=== PATIENT | female | born 1970 | race Caucasian/White ===

== ENCOUNTER 2021-01-26 21:06 | Observation (INO) ==
[2021-01-26] MEDS ORDERED: Ondansetron 4 MG/2 ML VIAL IVP ONE (21:29)
[2021-01-26] MEDS ORDERED: 0.9 % Sodium Chloride 1,000 ML IVC ONE ×2 (21:29→21:30)
[2021-01-26] MEDS ORDERED: Ketorolac 15 MG/ML VIAL IVP ONE (21:29)
[2021-01-26 21:41] LABS: Basophils % 0.3 %; Eosinophils # 0.1 K/mcL (0.0-0.6); Eosinophils % 0.7 %; Hematocrit 40.2 % (35.3-44.9); Hemoglobin 12.9 g/dL (11.5-15.4); Immature Granulocytes % 0.3 % (0-4); Lymphocytes # 0.8 K/mcL (0.6-4.6); Lymphocytes % 10.5 %; Mean Corpuscular HGB Conc 32.1 g/dL (31.6-35.5); Mean Corpuscular Hemoglobin 26.2 pg (28.0-33.3); Mean Corpuscular Volume 81.5 fL (83.0-100.0); Mean Platelet Volume 9.4 fL (9.4-12.4); Monocytes # 0.5 K/mcL (0.0-1.3); Monocytes % 6.5 %; Neutrophils # 6.2 K/mcL (1.6-8.9); Platelet Count 250 K/mcL (140-400); Red Blood Count 4.93 M/mcL (3.82-4.97); Segmented Neutrophils % 81.7 %; White Blood Count 7.5 K/mcL (4.3-11.1)
[2021-01-26 22:00] LABS: BUN/Creatinine Ratio 29 (6-26); Blood Urea Nitrogen 24 mg/dL (6-20); Calcium 8.4 mg/dL (8.6-10.3); Carbon Dioxide 21 mEq/L (23-29); Chloride 109 mEq/L (98-107); Glucose 104 mg/dL (70-105); Osmolality,Calculated 296 (280-300); Potassium 3.4 mEq/L (3.5-5.1); Sodium 141 mEq/L (136-145); eGFR For African Americans > 60 (> 60); eGFR For Non-African Americans > 60 (> 60)
[2021-01-27] MEDS ORDERED: Dexamethasone 4 MG/ML VIAL IVP ONE (00:02)
[2021-01-27] MEDS ORDERED: Melatonin 3 MG TABLET PO PRN (01:21)
[2021-01-27] MEDS ORDERED: Ondansetron ODT 4 MG TAB.RAPDIS SL PRN (01:21)
[2021-01-27] MEDS ORDERED: Acetaminophen 325 MG TABLET PO PRN (01:21)
[2021-01-27] MEDS ORDERED: Naloxone 0.4 MG/ML INJ IVP PRN (01:21)
[2021-01-27 02:59] LABS: Basophils % 0.1 %; Eosinophils % 0.6 %; Hemoglobin 11.9 g/dL (11.5-15.4); Immature Granulocytes % 0.3 % (0-4); Lymphocytes # 0.5 K/mcL (0.6-4.6); Lymphocytes % 7.6 %; Mean Corpuscular HGB Conc 31.3 g/dL (31.6-35.5); Mean Corpuscular Hemoglobin 26.1 pg (28.0-33.3); Mean Corpuscular Volume 83.3 fL (83.0-100.0); Mean Platelet Volume 9.3 fL (9.4-12.4); Monocytes # 0.3 K/mcL (0.0-1.3); Monocytes % 4.2 %; Neutrophils # 6.2 K/mcL (1.6-8.9); Platelet Count 217 K/mcL (140-400); Red Blood Count 4.56 M/mcL (3.82-4.97); Segmented Neutrophils % 87.2 %; White Blood Count 7.1 K/mcL (4.3-11.1)
[2021-01-27 03:19] LABS: Alanine Aminotransferase 71 Units/L (7-52); Albumin 3.5 g/dL (3.5-5.7); Albumin/Globulin Ratio 1.4 (1.1-2.2); Alkaline Phosphatase 85 Units/L (34-104); Aspartate Amino Transferase 57 Units/L (13-39); BUN/Creatinine Ratio 24 (6-26); Bilirubin,Total 0.6 mg/dL (0.3-1.0); Blood Urea Nitrogen 17 mg/dL (6-20); Calcium 7.9 mg/dL (8.6-10.3); Carbon Dioxide 21 mEq/L (23-29); Chloride 114 mEq/L (98-107); Globulin 2.5 g/dL (2.4-3.5); Glucose 104 mg/dL (70-105); Magnesium 1.6 mg/dL (1.6-2.6); Osmolality,Calculated 298 (280-300); Phosphorous 2.6 mg/dL (2.7-4.5); Potassium 3.8 mEq/L (3.5-5.1); Sodium 143 mEq/L (136-145); eGFR For African Americans > 60 (> 60); eGFR For Non-African Americans > 60 (> 60)
[2021-01-27] MEDS: Budesonide/Formoterol 80/4.5 1 PUFF INH IH SCH ×2 (03:46→09:20)
[2021-01-27] MEDS ORDERED: *HR* Heparin 5,000 UNIT/ML VIAL SQ SCH (06:00)
[2021-01-27] MEDS ORDERED: Dexamethasone 4 MG/ML VIAL IVP SCH (09:56)
[2021-01-27 11:27] VITALS: BP 110/92
[2021-01-27] MEDS ORDERED: *HR* Enoxaparin 40 MG/0.4 ML SYRINGE SQ ONE (12:00)
[2021-01-28] MEDS ORDERED: *HR* Enoxaparin 40 MG/0.4 ML SYRINGE SQ SCH (06:00)
[2021-01-28] MEDS ORDERED: Dexamethasone 4 MG/ML VIAL IVP SCH (09:00)
== END 2021-01-27 14:35 | disposition home or self-care (01) ==
LOC: EMEROOARM 21:06 → 2NENU 21:06 → SUATTDRO 01-27 00:30 → 2NENU 01-27 01:05
PROVIDERS: ADMIT Family Medicine; ATTEND Internal Medicine